=== PATIENT | male | born 1985 | race Caucasian/White ===

== ENCOUNTER 2016-11-16 22:08 | Emergency (ER) | payer OTHER ==
[~2016-11-16] VITALS: Ht 175.3 cm; Wt 104.5 kg
[2016-11-16 22:11] VITALS: Ht 175.3 cm; Wt 104.5 kg
[2016-11-16] MEDS ORDERED: SOD CHLORIDE 0.9% 1,000 ML IV STA (23:39)
[2016-11-16] MEDS ORDERED: ONDANSETRON 4 MG INJ IV STA (23:39)
[2016-11-16] MEDS ORDERED: KETOROLAC 30 MG INJ IV STA (23:39)
[2016-11-17] MEDS ORDERED: KETOROLAC 30 MG INJ IM STA (00:05)
[2016-11-17 00:20] LABS: ADD UMIC NO; URINE BILIRUBIN (Dip) NEGATIVE (NEGATIVE); URINE BLOOD (Dip) NEGATIVE (NEGATIVE); URINE COLOR LT. YELLOW (YELLOW); URINE GLUCOSE (Dip) NEGATIVE (NEGATIVE); URINE KETONES (Dip) NEGATIVE (NEGATIVE); URINE LEUKOCYTE ESTERASE (Dip) NEGATIVE (NEGATIVE); URINE NITRITE (Dip) NEGATIVE (NEGATIVE); URINE TOTAL PROTEIN (Dip) NEGATIVE (NEGATIVE); URINE UROBILINOGEN (Dip) 0.2 E.U./dL (0.1-1.0)
[2016-11-17 00:37] LABS: ADD SCAN DIFF NO
[2016-11-17 00:41] LABS: BASOPHILS % 0.3 % (0.0-2.0); EOSINOPHILS # 0.1 10^3/ul (0.0-0.5); EOSINOPHILS % 1.4 % (0.0-7.0); HEMATOCRIT 40.6 % (42.0-52.0); HEMOGLOBIN 13.5 g/dl (14.0-18.0); LYMPHOCYTES # 2.6 10^3/ul (0.8-2.9); LYMPHOCYTES % 28.4 % (15.0-51.0); MEAN CORPUSCULAR HGB CONC 33.3 g/dl (32.0-37.0); MEAN CORPUSCULAR VOLUME 87.1 fl (82.0-101.0); MONOCYTE # 0.7 10^3/ul (0.3-0.9); MONOCYTES % 7.5 % (0.0-11.0); NEUTROPHIL # 5.7 10^3/ul (1.6-7.5); NEUTROPHILS % 61.7 % (39.0-77.0); PLATELET COUNT 271 10^3/UL (140-415); RED BLOOD COUNT 4.66 10^6/ul (4.70-6.10); RED CELL DISTRIBUTION WIDTH 12.7 % (11.5-14.5); WHITE BLOOD COUNT 9.2 10^3/ul (4.8-10.8)
[2016-11-17 01:04] LABS: ALBUMIN 4.8 g/dl (3.3-4.9); ALBUMIN/GLOBULIN RATIO 1.45; CALCIUM 9.2 mg/dl (8.4-10.2); CREATININE 0.83 mg/dl (0.61-1.24); TOTAL PROTEIN 8.1 g/dl (6.1-8.1)
--- NOTE | 2016-11-17 01:24 | RADRPT ---
PROCEDURE: CT Abdomen and Pelvis without contrast. CLINICAL INDICATION: Flank pain. TECHNIQUE: A CT scan of the abdomen and pelvis was performed without intravenous contrast. Starkey l and sagittal reformatted images were generated. Images were reviewed on a high-resolution PACS wor kstation. CTDIvol: 21.03 mGy. DLP: 1437.73 mGy-cm. One or more of the following dose reduction techniques were used: - Automated exposure control. - Adjustment of the mA and/or kV according to patient size. - Use of iterative reconstruction technique. COMPARISON: None. FINDINGS: The lung bases are clear. Evaluation of the abdominal and pelvic viscera is limited by the lack of oral and intravenous contra st. The liver is unremarkable. The gallbladder is normal in appearance. The common bile duct is not dila winnie. The spleen is not enlarged. No pancreatic lesion is identified and there is no pancreatic ducta l dilatation. The adrenal glands are unremarkable. The kidneys are normal in size. There is no perinephric fat stranding. No hydronephrosis is seen. No urinary stone is identified. The small and large bowel are normal in caliber. The distal rectosigmoid colon is underdistended, li miting evaluation for colonic wall thickening. The appendix is thick-walled and mildly dilated (9 m m), but no significant periappendiceal inflammation is seen. The urinary bladder is unremarkable. The pelvic organs are within normal limits. No lymphadenopathy is identified. There is no ascites. No pneumoperitoneum is seen. There are no art erial calcifications. No suspicious osseous lesion is idenitified. IMPRESSION: 1. No obstructive uropathy or urinary stone. 2. Equivocal appearance of the appendix. The appendix is thick-walled and mildly dilated (9 mm), bu t no significant periappendiceal inflammation is seen. This could represent early appendicitis in t he correct clinical setting. 3. Limited evaluation for distal rectosigmoid colon wall thickening due to underdistension. Coliti s/proctitis cannot be excluded in this region. RPTAT: HTAR .Sukumar Alegre MD, Date Time Electronically viewed and signed by .Sukumar Alegre MD, on 11/17/2016 01:23 .Martin
[2016-11-17] MEDS ORDERED: IBUP-1542 PO (01:58)
[2016-11-17] MEDS ORDERED: ONDA4TAB14 PO (01:58)
[2016-11-17 02:06] VITALS: BP 137/84; PULSE 66; RESP 17; TEMP 98.9
--- NOTE | 2016-11-17 08:47 | ERD ---
ER Documentation Chief Complaint Date/Time DATE: 11/17/16 TIME: 08:45 Chief Complaint sudden onset of L flank pain and burning with urination HPI Patient is a 31 year old male with history of IVDA who presents to the ED with sudden onset L flank pain and dysuria which started at 4pm today. Patient states pain is constant, however varying in intensity. Patient reports low grade temp of 99F. Patient admits to nausea however he denies vomiting. Patient denies abdominal pain. Patient reports dysuria, however denies hematuria. Patient reports one episode of loose stools. Patient denies any trauma or heavy lifting. Patient denies recent travel and sick contacts. ROS All systems reviewed and are negative except as per history of present illness. Medications Home Meds Active Scripts Ondansetron (Ondansetron Odt) 4 Mg Tab.rapdis, 4 MG PO Q6H Y for NAUSEA AND/OR VOMITING, #10 TAB Prov:GURINDER SHEPPARD PA-C 11/17/16 Ibuprofen* (Motrin*) 600 Mg Tab, 600 MG PO Q6, #30 TAB Prov:GURINDER SHEPPARD PA-C 11/17/16 PMhx/Soc Medical and Surgical Hx: pt denies Medical Hx, pt denies Surgical Hx History of Surgery: No Anesthesia Reaction: No Hx Neurological Disorder: No Hx Respiratory Disorders: No Hx Cardiac Disorders: No Hx Psychiatric Problems: No Hx Miscellaneous Medical Probl: No Hx Alcohol Use: Yes Hx Substance Use: Yes (Heroin, on metadon now) Hx Tobacco Use: Yes Smoking Status: Current every day smoker Physical Exam Vitals Vital Signs Date Time Temp Pulse Resp B/P Pulse Ox O2 Delivery O2 Flow Rate FiO2 11/17/16 02:06 98.9 66 17 137/84 100 Room Air 11/16/16 22:11 98.3 72 20 154/92 100 Physical Exam GENERAL: Well-developed, well-nourished male. Appears in pain. HEAD: Normocephalic, atraumatic. EYES: Pupils are equally reactive bilaterally. EOMs grossly intact. No conjunctival erythema. ENT: Moist mucous membranes. No uvula deviation. No kissing tonsils. NECK: Supple. No lymphadenopathy or thyromegaly. No meningismus. LUNG: Clear to auscultation bilaterally. No rhonchi, wheezing, rales or coarse breath sounds. HEART: Regular rate and rhythm. No murmurs, rubs or gallops. ABDOMEN: No scars, ecchymosis or rashes noted. Soft, nontender, and nondistended. Positive bowel sounds in all four quadrants.No rebound tenderness , no guarding. (-) McBurneys point tenderness. Left sided CVA tenderness. BACK: No midline tenderness. Extremities: Equal pulses bilaterally. No peripheral clubbing, cyanosis or edema. No unilateral leg swelling. NEUROLOGIC: Alert and oriented. Moving all four extremities. 5/5 strength in all extremities. Normal speech. Steady gait. SKIN: Normal color. Warm and dry. Result Diagram: 11/17/16 0022 11/17/16 0022 Results 24 hrs Laboratory Tests Test 11/16/16 23:16 11/17/16 00:22 Urine Color LT. YELLOW Urine Clarity CLEAR Urine pH 8.0 Urine Specific Colman 1.015 Urine Ketones NEGATIVE Urine Nitrite NEGATIVE Urine Bilirubin NEGATIVE Urine Urobilinogen 0.2 E.U./dL Urine Leukocyte Esterase NEGATIVE Urine Hemoglobin NEGATIVE Urine Glucose NEGATIVE% Urine Total Protein NEGATIVE White Blood Count 9.210^3/ul Red Blood Count 4.6610^6/ul Hemoglobin 13.5g/dl Hematocrit 40.6% Mean Corpuscular Volume 87.1fl Mean Corpuscular Hemoglobin 29.0pg Mean Corpuscular Hemoglobin Concent 33.3g/dl Red Cell Distribution Width 12.7% Platelet Count 53070^3/UL Mean Platelet Volume 10.0fl Neutrophils % 61.7% Lymphocytes % 28.4% Monocytes % 7.5% Eosinophils % 1.4% Basophils % 0.3% Nucleated Red Blood Cells % 0.0/100WBC Neutrophils # 5.710^3/ul Lymphocytes # 2.610^3/ul Monocytes # 0.710^3/ul Eosinophils # 0.110^3/ul Basophils # 0.010^3/ul Nucleated Red Blood Cells # 0.010^3/ul Sodium Level 136mmol/L Potassium Level 4.0mmol/L Chloride Level 103mmol/L Carbon Dioxide Level 27mmol/L Anion Gap 10 Blood Urea Nitrogen 14mg/dl Creatinine 0.83mg/dl Glucose Level 90mg/dl Calcium Level 9.2mg/dl Total Bilirubin 0.0mg/dl Direct Bilirubin 0.00mg/dl Indirect Bilirubin 0.0mg/dl Aspartate Amino Transf (AST/SGOT) 29IU/L Alanine Aminotransferase (ALT/SGPT) 44IU/L Alkaline Phosphatase 73IU/L Total Protein 8.1g/dl Albumin 4.8g/dl Globulin 3.30g/dl Albumin/Globulin Ratio 1.45 Lipase 59U/L Current Medications Medications (Trade) Dose Ordered Sig/Annie Route PRN Reason Start Time Stop Time Status Last Admin Dose Admin Sodium Chloride (NS) 1,000 ml @ 1,000 mls/hr Q1H STAT IV 11/16/16 23:39 11/17/16 00:38 DC Ondansetron HCl (Zofran Inj) 4 mg ONCE STAT IV 11/16/16 23:39 11/16/16 23:40 DC Ketorolac Tromethamine (Toradol) 30 mg ONCE STAT IV 11/16/16 23:39 11/17/16 00:07 DC Ketorolac Tromethamine (Toradol) 30 mg ONCE STAT IM 11/17/16 00:05 11/17/16 00:08 DC Procedures/MDM ED COURSE: The patient was stable throughout ED course. I kept the patient and/or family informed of laboratory and diagnostic imaging results throughout the ED course. DIAGNOSTIC IMAGING: Read by radiologist. DIAGNOSTIC IMAGING REPORT Patient: JOE PARISI : 1985 Age: 31 Sex: M MR #: [id number] DOS: 11/16/16 2339 Ordering MD: GURINDER SHEPPARD PA-C Location: [facility] Room/Bed: PROCEDURE: CT Abdomen and Pelvis without contrast. CLINICAL INDICATION: Flank pain. TECHNIQUE: A CT scan of the abdomen and pelvis was performed without intravenous contrast. Coronal and sagittal reformatted images were generated. Images were reviewed on a high-resolution PACS workstation. CTDIvol: 21.03 mGy. DLP: 1437.73 mGy-cm. One or more of the following dose reduction techniques were used: - Automated exposure control. - Adjustment of the mA and/or kV according to patient size. - Use of iterative reconstruction technique. COMPARISON: None. FINDINGS: The lung bases are clear. Evaluation of the abdominal and pelvic viscera is limited by the lack of oral and intravenous contrast. The liver is unremarkable. The gallbladder is normal in appearance. The common bile duct is not dilated. The spleen is not enlarged. No pancreatic lesion is identified and there is no pancreatic ductal dilatation. The adrenal glands are unremarkable. The kidneys are normal in size. There is no perinephric fat stranding. No hydronephrosis is seen. No urinary stone is identified. The small and large bowel are normal in caliber. The distal rectosigmoid colon is underdistended, limiting evaluation for colonic wall thickening. The appendix is thick-walled and mildly dilated (9 mm), but no significant periappendiceal inflammation is seen. The urinary bladder is unremarkable. The pelvic organs are within normal limits. No lymphadenopathy is identified. There is no ascites. No pneumoperitoneum is seen. There are no arterial calcifications. No suspicious osseous lesion is idenitified. IMPRESSION: 1. No obstructive uropathy or urinary stone. 2. Equivocal appearance of the appendix. The appendix is thick-walled and mildly dilated (9 mm), but no significant periappendiceal inflammation is seen. This could represent early appendicitis in the correct clinical setting. 3. Limited evaluation for distal rectosigmoid colon wall thickening due to underdistension. Colitis/proctitis cannot be excluded in this region. PROCEDURES: None. MEDICATIONS GIVEN: Give patient's history of IV drug use, nursing staff was unable to obtain IV line and given IV medications. Patient was given Toradol IM Patient tolerated medication well with no adverse reactions. Patient reported improvement in pain. MEDICAL DECISION MAKING: This is a 31 year old male with PMHx of IVDA who presents to the ED with L flank pain, dysuria and diarrhea. Vital signs were reviewed. Patient was afebrile. UA was negative for acute infection or hematuria.CBC showed no evidence of systemic infection or severe anemia. CMP showed no evidence of electrolyte abnormalities, severe acidosis, alkalosis, renal failure, or liver disease. Lipase showed no evidence of acute pancreatitis. UA showed no evidence of acute infection or hematuria.. CT abdomen and pelvis showed 1. No obstructive uropathy or urinary stone. 2. Equivocal appearance of the appendix. The appendix is thick-walled and mildly dilated (9 mm), but no significant periappendiceal inflammation is seen. This could represent early appendicitis in the correct clinical setting. 3. Limited evaluation for distal rectosigmoid colon wall thickening due to underdistension. Colitis/proctitis cannot be excluded in this region. I discussed the patient's CT scan results with my supervising physician, Dr. Serrano. Given that patient denied RLQ pain and had no white count, patient unlikely to have appendicitis at this current time. I explained to the patient at length, that he should continue to monitor his symptoms and if he developed severe right lower quadrant or umbilical pain, fevers, chills, nausea or vomiting, he should return to the ER immediately. Patient and patient's girlfriend who was present at bedside, were both agreeable with this plan. Given these findings, the patients presentation is most consistent with left flank pain and dysuria. I have a much lower clinical concern for nephrolithiasis, UTI, pyelonephritis, diverticulitis, constipation, urethritis, prostatitis, epididymitis, testicular torsion. PRESCRIPTIONS: Ibuprofen, Zofran DISCHARGE: At this time, patient is stable for discharge and outpatient management. I have instructed the patient to follow-up with his/her primary care physician in 1-2 days. If symptoms persist, patient may need to see a specialist for further examinations and testing. I have instructed the patient to promptly return to the ER at any time for any new or worsening symptoms including increased increased pain, fever, nausea, vomiting, urinary changes or weakness. The patient and/or family expressed understanding of and agreement with this plan. All questions were answered. Home care instructions were provided. Departure Diagnosis: Primary Impression: Flank pain Additional Impression: Dysuria Condition: Stable Patient Instructions: Flank Pain, Uncertain Cause Referrals: [facility] YOU HAVE RECEIVED A MEDICAL SCREENING EXAM AND THE RESULTS INDICATE THAT YOU DO NOT HAVE A CONDITION THAT REQUIRES URGENT TREATMENT IN THE EMERGENCY DEPARTMENT. FURTHER EVALUATION AND TREATMENT OF YOUR CONDITION CAN WAIT UNTIL YOU ARE SEEN IN YOUR DOCTORS OFFICE WITHIN THE NEXT 1-2 DAYS. IT IS YOUR RESPONSIBILITY TO MAKE AN APPOINTMENT FOR FOLOW-UP CARE. IF YOU HAVE A PRIMARY DOCTOR --you should call your primary doctor and schedule an appointment IF YOU DO NOT HAVE A PRIMARY DOCTOR YOU CAN CALL OUR PHYSICIAN REFERRAL HOTLINE AT IF YOU CAN NOT AFFORD TO SEE A PHYSICIAN YOU CAN CHOSE FROM THE FOLLOWING [facility] [address] [facility]. [facility] [address] [facility] [address] [facility] [address] [facility] [facility]. [facility] [address] [facility] [facility]. [address] [facility]. [facility] YOU HAVE RECEIVED A MEDICAL SCREENING EXAM AND THE RESULTS INDICATE THAT YOU DO NOT HAVE A CONDITION THAT REQUIRES URGENT TREATMENT IN THE EMERGENCY DEPARTMENT. FURTHER EVALUATION AND TREATMENT OF YOUR CONDITION CAN WAIT UNTIL YOU ARE SEEN IN YOUR DOCTORS OFFICE WITHIN THE NEXT 1-2 DAYS. IT IS YOUR RESPONSIBILITY TO MAKE AN APPOINTMENT FOR FOLOW-UP CARE. IF YOU HAVE A PRIMARY DOCTOR --you should call your primary doctor and schedule and appointment IF YOU DO NOT HAVE A PRIMARY DOCTOR YOU CAN CALL OUR PHYSICIAN REFERRAL HOTLINE AT . IF YOU CAN NOT AFFORD TO SEE A PHYSICIAN YOU CAN CHOSE FROM THE FOLLOWING PENDING SALE TO [facility] [address] [place] [address] [facility] [address] [place] [address] [facility] + [facility] [address] [place] [address] Additional Instructions: Abdominal pain recheck advised in 8 hours. Return sooner for any new or worsening symptoms including severe pain, nausea, vomiting, fevers or chills. Call your primary care doctor TOMORROW for an appointment during the next 1-2 days.See the doctor sooner or return here if your condition worsens before your appointment time. GURINDER SHEPPARD PA-C Nov 17, 2016 08:45
== END 2016-11-17 02:07 | disposition home or self-care (01) ==
LOC: FTE 22:08
DX: R10.9 Unspecified abdominal pain (principal); R30.0 Dysuria; F17.210 Nicotine dependence, cigarettes, uncomplicated; R11.0 Nausea
CPT/HCPCS: 74176; 80053; 81003; 83690; 85025; J7030